=== PATIENT | female | born 1995 | race Caucasian/White ===

== ENCOUNTER 2018-08-20 19:43 | Emergency (ER) | payer OTHER ==
[2018-08-20] MEDS: LEVALBUTEROL (NEB) 1.25 MG/0.5 ML AMP INH (20:16)
[2018-08-20] MEDS: IPRATROPIUM (NEB) 0.5 MG/2.5 ML AMP INH (20:16)
[2018-08-20] MEDS: METHYLPREDNISOLONE 125 MG INJ IV (20:21)
[2018-08-20] MEDS: MAGNESIUM SULFATE 2 GM/50 ML 50 ML IVPB (20:22)
[2018-08-20] MEDS: SOD CHLORIDE 0.9% 1,000 ML IV ×2 (20:25→22:17)
[2018-08-20] MEDS: IPRATROPIUM (NEB) 0.5 MG/2.5 ML AMP NEB (23:21)
[2018-08-20] MEDS: ALBUTEROL 0.083% (NEB) 2.5 MG/3 ML AMP NEB (23:21)
== END 2018-08-20 23:57 | disposition home or self-care (01) ==
LOC: E/R 19:43
DX: J45.901 Unspecified asthma with (acute) exacerbation (principal)
CPT/HCPCS: 71045; 93005; 94640; 94644; 94664; 96365; 96375; 99284-25